=== PATIENT | female | born 1980 | race Caucasian/White ===

== ENCOUNTER 2021-01-01 18:49 | Emergency (ER) | payer OTHER ==
--- OUTSIDE RECORDS SUMMARY | 2021-01-01 18:54 | XMS REPORT | Continuity of Care Document ---
:1980 Author Organization [facility] t Address [address] [place] [address] Care Team Providers Name Role Phone Lab, Fam Pob I Attending Clinician Unavailable Doctor Unassigned, Name Attending Clinician Unavailable Problems Condition Condition Condition Status Onset Resolution Last Treating Co mments Source Name Details Category Date Date Treatment Clinician Date Morbid Problem Active 2019-11-13 Memor ia obesity 04:10:56 l Morbid [place] obesity Active Problem 11/13/2019 eCW: Karis Garcia MD, PA Essential Problem Active 2019-11-13 Me moria hypertensi 04:10:56 l on [place] Essential hypertensi on Active Problem 0 eCW: Karis Garcia MD, PA Hyperglyce Problem Active 2019-11-13 M emoria sonal 04:10:56 l [place] Hyperglyce sonal Active Problem 11/13/2019 eCW: Karis Garcia MD, PA Acquired Problem Active 2019-11-13 Mem oria hypothyroi 04:10:56 l dism Acquired Maximus n hypothyroi dism Active Problem 11/13/2019 eCW: Karis Garcia MD, PA BMI Problem Active 2018-06-26 Memor ia 50.0-59.9, 05:30:17 l adult BMI [place] 50.0-59.9, adult Active Problem 06/26/2018 eCW: Karis Garcia MD, PA Exacerbati Problem Active 2018-06-26 M emoria on of RAD 05:30:17 l (reactive [place] airway Exacerbati disease), on of RAD mild (reactive persistent airway disease), mild persistent Active Problem 06/26/2018 eCW: Karis Garcia MD, PA Viral Diagnosis Active 2018-10-06 Mem oria gastroente 05:11:11 l ritis Viral [place] gastroente ritis Active Diagnosis 10/06/2018 eCW: Karis Garcia MD, PA Dysuria Diagnosis Active 2018-10-06 Me moria 05:11:11 l Dysuria [place] Active Diagnosis 10/06/2018 eCW: Karis Garcia MD, PA Swelling Problem Active 2019-11-13 Mem oria of both 04:10:56 l lower Swelling Maximus n extremitie of both s lower extremitie s Active Problem 11/13/2019 eCW: Karis Garcia MD, PA Reactive Problem Active 2019-11-13 Mem oria airway 04:10:56 l disease Reactive Alla nn airway disease Active Problem 11/13/2019 eCW: Karis Garcia MD, PA Generalize Diagnosis Active 2018-10-12 Memoria d 04:10:58 l abdominal [place] pain Generalize d abdominal pain Active Diagnosis 10/12/2018 eCW: Karis Garcia MD, PA Open wound Diagnosis Active 2014-02-13 Memoria of foot 04:15:15 l except Open [place] toe(s) wound of alone, foot complicate except d toe(s) alone, complicate d Active Diagnosis 02/13/2014 eCW: Karis Garcia MD PA Acute Diagnosis Active 2018-06-26 Mem oria bacterial 05:14:07 l bronchitis Acute Alla nn bacterial bronchitis Active Diagnosis 06/26/2018 eCW: Karis Garcia MD, PA Blood in Diagnosis Active 2018-09-12 M emoria stool 05:13:09 l Blood in Maximus n stool Active Diagnosis 09/12/2018 eCW: Karis Garcia MD, PA Open wound Diagnosis Active 2014-03-27 Memoria of toe(s), 04:11:12 l complicate Open Maximus n d wound of toe(s), complicate d Active Diagnosis 03/27/2014 eCW: Karis Garcia MD, PA Allergies, Adverse Reactions, Alerts Allergy Allergy Status Severity Reaction(s) Onset Inactive Treating Comm ents Source Name Type Date Date Clinician all fish all fish Active stomach 2018- Memor ia upset 3-07 l 00:00: N.NuriaAGisella Willis Active Info Not 2015-07 Tyler attila Available 0-24 l 00:00: Family History Family Member Diagnosis Comments Start Date Stop Date Source Unknown Family Family History 2014-03-27 2014-03-27 Memori al [place] Member 04:11:12 04:11:12 Social History Social Habit Start Date Stop Date Quantity Comments Source TobaccoUse: 2015-05-08 00:00:00 2015-05-08 Tyler rial [place] 00:00:00 Medications Ordered Filled Start Stop Current Ordering Indication Dosage Frequency Signature Comments Components Source Medication Medication Date Date Medication? Clinician (SIG) Name Name Synthroid 2018- Yes LIZ 1 tablet M emoria 1-14 TUCKER on an l 05:10: empty 56 stomach in the morning Nexplanon 2019-0 Yes TIYASHI not Memor ia 3-09 KELLY defined l 05:11: 11 Loperamide 2019-0 Yes TIYASHI 1 capsule Memoria HCl 3-07 KELLY l 00:00: Dicyclomine 2019-0 Yes TIYASHI 1 tablet Memoria HCl 3-07 KELLY l 00:00: Macrobid 2019-0 Yes TIYASHI 1 capsule M emoria 3-05 KELLY with food l 00:00: Lisinopril- 2019-0 Yes TIYASHI 1 tablet Memoria Hydrochloro 2-13 KELLY l thiazide 05:13: Cytomel 2019-0 Yes TIYASHI 1 tablet Mem oria 2-12 KELLY on an l 00:00: empty 00 stomach Lisinopril- 2019-0 Yes TIYASHI 1 tablet Memoria Hydrochloro 2-11 KELLY l thiazide 00:00: Lisinopril- 2017-1 Yes LIZ 1 tablet Memoria Hydrochloro 1-27 TUCKER l thiazide 05:18: 36 Levothyroxi 2017- Yes LIZ 1 tablet Memoria ne Sodium 1-27 TUCKER l 05:18: [place] 36 Levothyroxi 2017- Yes LIZ take one Memoria ne Sodium 1-15 TUCKER tablet by l 05:54: mouth [place] 41 every day 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 2017-07 Yes NEIDA 1 ml Memor ia a 1-13 CHING l 05:15: [place] 56 Synthroid 2017-0 Yes TIYASHI 1 tablet M emoria 7-25 KELLY on an l 00:00: empty stomach in the morning MethylPREDN 2017-0 Yes TIYASHI as Mem oria ISolone 7-20 KELLY directed l 00:00: Albuterol 2017-0 Yes TIYASHI 2 puffs Me moria Sulfate HFA 7-20 KELLY l 00:00: Albuterol 2018-0 Yes TIYASHI 2 puffs Me moria Sulfate HFA 7-20 KELLY l 00:00: Azithromyci 2017-0 Yes LIZ 2 tablets Memoria n 7-20 TUCKER on the l 00:00: first day, then 1 tablet daily for 4 days Lisinopril- 20180 Yes TIYASHI 1 tablet Memoria Hydrochloro 7-16 KELLY l thiazide 00:00: Levothyroxi 2016-0 Yes LIZ 1 tablet Memoria ne Sodium 2-22 TUCKER l 00:00: Lisinopril 2014-07 No NEIDA 1 tablet Me moria 0-16 CHING l 06:14: [place] Cipro 2014-07 Yes NEIDA 1 tablet Memoria 0-16 CHING l 06:14: [place] Acetaminoph 2014-07 Yes NEIDA 1 tablet M emoria en-Codeine 0-16 CHING as needed l 06:14: [place] 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 2014-07 Yes NEIDA 1 ml Memor ia a 0-16 CHING l 06:14: [place] Levothyroxi 2014-07 Yes NEIDA TAKE ONE M emoria ne Sodium 0-16 CHING TABLET BY l 06:14: MOUTH [place] 17 EVERY DAY Cephalexin 2014-07 Yes NEIDA 1 capsule M emoria 0-16 CHING l 06:14: [place] 17 Lisinopril- 2014- Yes NEIDA 1 tablet M emoria Hydrochloro 0-09 CHING l thiazide 00:00: [place] 00 Lisinopril- 2014- Yes NEIDA 1 tablet M emoria Hydrochloro 0-09 CHING l thiazide 00:00: [place] 00 Levothyroxi 2013- Yes NEIDA 1 tablet M emoria ne Sodium 8-28 CHING on an l 04:11: empty [place] 12 stomach in the morning Acetaminoph 2013- Yes NEIDA 1 tablet M emoria en-Codeine 7-30 CHING as needed l 04:20: [place] 08 Doxycycline 2013- Yes NEIDA 1 capsule Memoria Hyclate 7-14 CHING l 00:00: [place] 00 Cipro Yes NEIDA 1 tablet Memoria 7-09 CHING l 00:00: [place] 00 Vital Signs Vital Name Observation Time Observation Value Comments Source Diastolic (mm Hg) 2018-10-04 15:45:00 Mem orial [place] Systolic (mm Hg) 2018-10-04 15:45:00 Tyler rial [place] Temperature Oral (F) 2018-10-04 15:45:00 98.0 F [facility] [place] Weight 2018-10-04 15:45:00 [facility] [place] Height 2018-10-04 15:45:00 [facility] [place] Diastolic (mm Hg) 2018-09-10 22:00:00 Mem orial [place] Systolic (mm Hg) 2018-09-10 22:00:00 Tyler rial [place] Temperature Oral (F) 2018-09-10 22:00:00 98.2 F [facility] [place] Weight 2018-09-10 22:00:00 [facility] [place] Height 2018-09-10 22:00:00 [facility] [place] Diastolic (mm Hg) 2018-02-16 15:30:00 Mem orial [place] Systolic (mm Hg) 2018-02-16 15:30:00 Tyler rial [place] Temperature Oral (F) 2018-02-16 15:30:00 99.3 F [facility] [place] Weight 2018-02-16 15:30:00 [facility] [place] Height 2018-02-16 15:30:00 [facility] [place] Diastolic (mm Hg) 2016-09-19 16:45:00 Mem orial [place] Systolic (mm Hg) 2016-09-19 16:45:00 Tyler rial [place] Temperature Oral (F) 2016-09-19 16:45:00 98.4 F [facility] [place] Weight 2016-09-19 16:45:00 [facility] [place] Height 2016-09-19 16:45:00 [facility] [place] Diastolic (mm Hg) 2016-05-23 20:00:00 Mem orial [place] Systolic (mm Hg) 2016-05-23 20:00:00 Tyler rial [place] Temperature Oral (F) 2016-05-23 20:00:00 98.4 F [facility] [place] Weight 2016-05-23 20:00:00 [facility] [place] Height 2016-05-23 20:00:00 [facility] [place] Weight 2015-05-08 15:00:00 [facility] [place] Height 2015-05-08 15:00:00 [facility] [place] Temperature Oral (F) 2015-05-08 15:00:00 97.2 F [facility] [place] Weight 2014-02-21 15:45:00 [facility] [place] Height 2014-02-21 15:45:00 [facility] [place] Temperature Oral (F) 2014-02-21 15:45:00 98.7 F [facility] [place] Diastolic (mm Hg) 2014-02-21 15:45:00 Mem orial [place] Systolic (mm Hg) 2014-02-21 15:45:00 Tyler rial [place] Weight 2014-02-17 15:15:00 [facility] [place] Height 2014-02-17 15:15:00 [facility] [place] Temperature Oral (F) 2014-02-17 15:15:00 96.8 F [facility] [place] Diastolic (mm Hg) 2014-02-17 15:15:00 Mem orial [place] Systolic (mm Hg) 2014-02-17 15:15:00 Tyler rial [place] Weight 2014-02-10 19:15:00 [facility] [place] Height 2014-02-10 19:15:00 [facility] [place] Temperature Oral (F) 2014-02-10 19:15:00 96.7 F [facility] [place] Diastolic (mm Hg) 2014-02-10 19:15:00 Mem orial [place] Systolic (mm Hg) 2014-02-10 19:15:00 Tyler rial [place] Weight 2014-02-05 15:30:00 Tanner Almendarez Height 2014-02-05 15:30:00 Tanner Almendarez Temperature Oral (F) 2014-02-05 15:30:00 98.3 F Tanner Almendarez Procedures This patient has no known procedures. Encounters Start End Encounter Admission Attending Care Care Encounter Source Date/Time Date/Time Type Type Clinicians Facility Department ID 2020-08-04 2020-08-04 Laboratory Lab, [facility] [id number] 17:06:16 17:26:16 Only Fam Pob I [facility] [id number] [place] [id number] Professio [id number] nal [id number] One 2019-11-11 2019-11-11 Outpatient [facility] [id number] eClinic 10:03:00 10:03:00 [place] [facility] 2019-06-12 2019-06-12 [facility] [id number] eClinic 10:38:00 10:38:00 [place] [facility] 2019-06-11 2019-06-11 [facility] [place] [id number] eClinic 09:45:00 09:45:00 [place] [facility] 2019-03-20 2019-03-20 Orders Doctor REYNAGA [id number] 00:00:00 00:00:00 Only Unassigned, LEWIS [id number] [place] [facility] [id number] 2019-02-21 2019-02-21 [facility] [place] [id number] eClinic 12:40:00 12:40:00 [place] [facility] 2019-02-01 2019-02-01 [facility] [id number] eClinic 15:39:00 15:39:00 [place] [facility] 2019-02-01 2019-02-01 [facility] [id number] eClinic 11:11:00 11:11:00 [place] [facility] 2018-10-08 2018-10-08 Outpatient Karis Karis [id number] eClinic 10:39:00 10:39:00 Jose Garcia MD a Heide JUAREZ 2018-10-04 2018-10-04 Outpatient Karis Karis [id number] eClinic 09:45:00 09:45:00 Jose Jaeger MD 2018-10-02 2018-10-02 Outpatient Karis Karis [id number] eClinic 16:49:00 16:49:00 Jose Garcia MD a Heide JUAREZ 2018-09-11 2018-09-11 Outpatient Karis Karis [id number] eClinic 08:49:00 08:49:00 Jose Garcia MD a Heide JUAREZ 2018-09-10 2018-09-10 Outpatient Karis Karis [id number] eClinic 16:00:00 16:00:00 Jose Jaeger MD 2018-03-05 2018-03-05 Outpatient Karis Karis [id number] eClinic 08:53:00 08:53:00 Jose Jaeger MD 2018-02-27 2018-02-27 Outpatient Karis Karis [id number] eClinic 16:20:00 16:20:00 Jose Jaeger MD 2018-02-21 2018-02-21 Outpatient Karis Karis [id number] eClinic 10:17:00 10:17:00 Jose Jaeger MD 2018-02-17 2018-02-17 Outpatient Karis Karis [id number] eClinic 09:26:00 09:26:00 Jose Jaeger MD 2018-02-16 2018-02-16 Outpatient Karis Karis [id number] eClinic 09:30:00 09:30:00 Jose Jaeger MD 2018-02-12 2018-02-12 Outpatient Karis Karis [id number] eClinic 16:43:00 16:43:00 Jose Jaeger MD 2018-02-08 2018-02-08 Outpatient Karis Karis [id number] eClinic 18:53:00 18:53:00 Jose Garcia MD a Heide JUAREZ 2016-12-16 2016-12-16 Outpatient Karis Karis [id number] eClinic 12:10:00 12:10:00 Jose Garcia MD a Heide JUAREZ 2016-12-16 2016-12-16 Outpatient Karis Karis [id number] eClinic 12:10:00 12:10:00 Jose Garcia MD a Heide JUAREZ 2016-12-16 2016-12-16 Outpatient Karis Karis [id number] eClinic 09:15:00 09:15:00 Jose Garcia MD a Heide JUAREZ 2016-09-21 2016-09-21 Outpatient Karis Karis [id number] eClinic 14:14:00 14:14:00 Jose Garcia MD a Heide JUAREZ 2016-09-19 2016-09-19 Outpatient Karis Karis [id number] eClinic 10:45:00 10:45:00 Jose Garcia MD a Heide JUAREZ 2016-05-23 2016-05-23 Outpatient Karis Karis [id number] eClinic 14:00:00 14:00:00 Jose Jaeger MD 2015-05-08 2015-05-08 Outpatient Karis Karis [id number] eClinic 10:00:00 10:00:00 Jose Garcia al Works MD, PA MD, PA 2014-06-04 2014-06-04 Outpatient Karis Karis [id number] eClinic 14:27:00 14:27:00 Jose Garcia al Works MD, PAZ JUAREZ, PA 2014-02-21 2014-02-21 Outpatient Karis Karis [id number] eClinic 10:45:00 10:45:00 Jose Garcia al Works MD, PA MD, PA 2014-02-17 2014-02-17 Outpatient Karis Karis [id number] eClinic 11:13:00 11:13:00 Jose Garcia al Works MD, PA , PA 2014-02-17 2014-02-17 Outpatient Karis Karis [id number] eClinic 10:15:00 10:15:00 Jose Garcia al Works MD, PA , PA 2014-02-10 2014-02-10 Outpatient Karis Karis [id number] eClinic 16:33:00 16:33:00 Jose Garcia al Works MD, PA , PA 2014-02-10 2014-02-10 Outpatient Karis Karis [id number] eClinic 14:15:00 14:15:00 Jose Garcia al Works MD, PA , PA 2014-02-05 2014-02-05 Outpatient Karis Karis [id number] eClinic 15:17:00 15:17:00 Jose Garcia al Works MD, PA , PA 2014-02-05 2014-02-05 Outpatient Karis Karis [id number] eClinic 10:30:00 10:30:00 Jose Garcia al Works MD, PA , PA Results This patient has no known results.
[2021-01-01 19:50] LABS: Urine Blood Negative (Negative); Urine Glucose Negative (Negative); Urine Protein Negative (Negative); Urine pH 6.5 (5.0-7.0)
[2021-01-01 20:05] LABS: Absolute Lymphocytes (CBC) 2.5 K/uL (0.7-4.9); Basophils % 0.6 % (0-1.3); MPV 6.4 fL (7.6-11.3); RBC Red Blood Cell Count 4.29 M/uL (3.86-4.86)
[2021-01-01] MEDS ORDERED: ONDANSETRON 4 MG/2 ML VIAL ONE (20:17)
[2021-01-01] MEDS ORDERED: MORPHINE 4 MG/ML SYR ONE (20:17)
[2021-01-01 20:26] LABS: ALT/SGPT 30 U/L (12-78); AST/SGOT 14 U/L (15-37); Albumin 3.5 g/dL (3.4-5.0); Alkaline Phosphatase 72 U/L (45-117); BUN Blood Urea Nitrogen 17 mg/dL (7-18); Bicarbonate 30 mmol/L (21-32); Bilirubin Direct < 0.1 mg/dL (0-0.2); Bilirubin Total 0.2 mg/dL (0.2-1.0); Glucose Level 99 mg/dL (74-106); Lipase 104 U/L (73-393); Potassium 4.1 mmol/L (3.5-5.1); Protein, Total 7.5 g/dL (6.4-8.2); Sodium Level 138 mmol/L (136-145)
[2021-01-01 20:30] LABS: Urine Amorphous Sediment 2+ /HPF (NONE SEEN); Urine Bacteria 20-50 /HPF (<20); Urine Mucus 1+ /HPF (NONE SEEN); Urine RBC <5 /HPF (NONE SEEN); Urine Yeast FEW (NONE SEEN)
--- NOTE | 2021-01-01 20:55 | RAD REPORT ---
EXAM DESCRIPTION: US - Pelvis Complete - 01/01/2021 8:31 pm CLINICAL HISTORY: Pelvic pain COMPARISON: None FINDINGS: Evaluation is limited as the bladder is not well distended. Uterus measures approximately 11 x 4 x 5 centimeters. The endometrial stripe was not well visualized but appears normal thickness. Evaluation for fibroids limited. No gross fibroid seen. Right and left ovaries probably visualized and appear normal in size and echotexture. The right and left adnexa appear unremarkable No significant free fluid IMPRESSION: Grossly normal pelvic ultrasound
--- NOTE | 2021-01-01 21:26 | RAD REPORT ---
EXAM DESCRIPTION: CT - Abdomen Pelvis W Contrast - 01/01/2021 9:10 pm CLINICAL HISTORY: Abdominal pain COMPARISON: Pelvic ultrasound January 01, 2021 TECHNIQUE: Computed axial tomography of the abdomen pelvis was obtained. 100 cc Isovue-300 was admin istered intravenously. Oral contrast was not requested which limits evaluation of bowel. All CT scans are performed using dose optimization technique as appropriate and may include automated exposure control or mA/KV adjustment according to patient size. FINDINGS: Fatty liver The spleen, pancreas, adrenal and kidneys appear unremarkable. There is no evidence of diverticulitis. Normal appendix. Small umbilical hernia contains fat. No adnexal mass. 18 millimeter left ovarian follicle IMPRESSION: No acute abnormality is displayed.
--- NOTE | 2021-01-01 21:50 | ER ---
Nurse's Notes [facility] Name: Gallito Butler Age: 40 yrs Sex: Female : 1980 Arrival Date: 01/01/2021 Time: 18:55 Bed 5 Private MD: Diagnosis: Abdominal and pelvic pain;Urinary tract infection, site not specified Presentation: 01/01 18:58 Chief complaint: Patient states: "I am having lower abdominal pain that is sharp and jd3 stabbing. the pain is in the middle to left side of my stomach.". Coronavirus screen: At this time, the client does not indicate any symptoms associated with coronavirus-19. Ebola Screen: Patient negative for fever greater than or equal to 101.5 degrees Fahrenheit, and additional compatible Ebola Virus Disease symptoms. Initial Sepsis Screen: Does the patient meet any 2 criteria? No. Patient's initial sepsis screen is negative. Does the patient have a suspected source of infection? No. Patient's initial sepsis screen is negative. Risk Assessment: Do you want to hurt yourself or someone else? Patient reports no desire to harm self or others. Onset of symptoms was January 01, 2021. 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 - Social history:: Smoking status: Patient denies any tobacco usage or history of. Screenin:06 Abuse screen: Denies threats or abuse. Denies injuries from another. Nutritional rr5 screening: No deficits noted. Tuberculosis screening: No symptoms or risk factors identified. Fall Risk IV access (20 points). Total [place] Fall Scale indicates No Risk (0-24 pts). Assessment: 19:50 General: Appears in no apparent distress. uncomfortable, Behavior is calm, cooperative, rr5 appropriate for age. 19:50 Pain: Complains of pain in left lower quadrant Pain currently is 8 out of 10 on a pain rr5 scale. Quality of pain is described as aching, sharp, Pain began gradually, Is intermittent. Neuro: Level of Consciousness is awake, alert, obeys commands, Oriented to person, place, time. Cardiovascular: Capillary refill < 3 seconds Patient's skin is warm and dry. Respiratory: Airway is patent Respiratory effort is even, unlabored, Respiratory pattern is regular, symmetrical. GI: Abdomen is round obese, Abd is soft and non tender Reports lower abdominal pain. : No signs and/or symptoms were reported regarding the genitourinary system. EENT: No signs and/or symptoms were reported regarding the EENT system. Derm: Skin is intact, is healthy with good turgor, Skin temperature is warm. Musculoskeletal: Capillary refill < 3 seconds. 21:15 Reassessment: Patient appears in no apparent distress at this time. Patient is alert, rr5 oriented x 3, equal unlabored respirations, skin warm/dry/pink. awaiting for CT result Patient states feeling better. Patient states symptoms have improved. 21:56 Reassessment: Patient appears in no apparent distress at this time. Patient is alert, rr5 oriented x 3, equal unlabored respirations, skin warm/dry/pink. discharge instruction given and explained without complaints made Patient states symptoms have improved. Vital Signs: 19:01 BP 150 / 92; Pulse 89; Resp 18 S; Temp 97.5(TE); Pulse Ox 97% on R/A; Weight 131.54 kg jd3 (R); Height 5 ft. 3 in. (160.02 cm) (R); Pain 7/10; 20:30 BP 155 / 95; Pulse 86; Resp 16; Pulse Ox 98% ; rr5 21:30 BP 141 / 75; Pulse 80; Resp 16; Pulse Ox 98% ; Pain 4/10; rr5 21:57 BP 132 / 75; Pulse 75; Resp 19; Pulse Ox 99% ; rr5 19:01 Body Mass Index 51.37 (131.54 kg, 160.02 cm) j ED Course: 18:55 Patient arrived in ED. mr 19:00 Triage completed. jd3 19:02 Arm band placed on. [facility] 19:34 Xander hCo PA is PHCP. [facility] 19:34 Jeovanny Garcia MD is Attending Physician. [facility] 19:45 Dylan Quinn, RN is Primary Nurse. rr5 19:55 Urine collected: clean catch specimen, clear. rr5 20:02 Inserted saline lock: 20 gauge in right forearm, using aseptic technique. Blood rr5 collected. 20:06 Patient has correct armband on for positive identification. Bed in low position. Call rr5 light in reach. 20:31 US Pelvis Complete In Process Unspecified. EDMS 21:11 CT Abd/Pelvis - IV Contrast Only In Process Unspecified. EDMS 21:57 No provider procedures requiring assistance completed. IV discontinued, intact, rr5 bleeding controlled, No redness/swelling at site. Pressure dressing applied. Administered Medications: 20:00 Drug: Zofran (Ondansetron) 4 mg Route: IVP; Site: right forearm; rr5 21:03 Follow up: Response: No adverse reaction rr5 20:02 Drug: morphine 4 mg {Note: rass 0.} Route: IVP; Site: right forearm; rr5 21:00 Follow up: Response: No adverse reaction; RASS: Alert and Calm (0) rr5 Outcome: 21:50 Discharge ordered by . [facility] 21:57 Discharged to home ambulatory, with family. rr5 21:57 Condition: stable 21:57 Discharge instructions given to patient, Instructed on discharge instructions, follow up and referral plans. medication usage, Demonstrated understanding of instructions, follow-up care, medications, Prescriptions given X 2. 21:58 Patient left the ED. rr5 Signatures: Dispatcher [employer] EDMS Xander Cho PA PA [facility] Ruby Chase Moncada RN RN jd3 Roque, Raymond, WILLIAM RN rr5
--- NOTE | 2021-01-01 21:51 | EDPHYS ---
Physician Documentation [facility] Name: Gallito Butler Age: 40 yrs Sex: Female : 1980 Arrival Date: 01/01/2021 Time: 18:55 Bed 5 Private MD: ED Physician Jeovanny Garcia HPI: 01/01 19:48 This 40 yrs old Female presents to ER via Ambulatory with complaints of jmm Abdominal Pain. 19:48 The patient presents with abdominal pain. Onset: The symptoms/episode began/occurred jmm gradually, today. The symptoms do not radiate. Associated signs and symptoms: Pertinent positives: abdominal pain. Associated signs and symptoms: Pertinent negatives: diarrhea, dysuria, fever, vomiting. The symptoms are described as achy. Modifying factors: The symptoms are alleviated by nothing, the symptoms are aggravated by pressure. The patient has experienced similar episodes in the past, ovarian cysts. This is a 40 year old female with a history of hypothyroidism, htn that presents to the ED with complaints of left sided pelvic pain beginning acute onset this morning around 0900. Feels similar previous ovarian cyst. . 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 - Social history:: Smoking status: Patient denies any tobacco usage or history of. ROS: 19:48 Constitutional: Negative for fever, chills, and weight loss, Cardiovascular: Negative jmm for chest pain, palpitations, and edema, Respiratory: Negative for shortness of breath, cough, wheezing, and pleuritic chest pain. 19:48 Abdomen/GI: Positive for abdominal pain. 19:48 All other systems are negative. Exam: 19:48 Constitutional: This is a well developed, well nourished patient who is awake, alert, jmm and in no acute distress. Head/Face: atraumatic. Eyes: EOMI, no conjunctival erythema appreciated ENT: Moist Mucus Membranes Neck: Trachea midline, Supple Chest/axilla: Normal chest wall appearance and motion. Cardiovascular: Regular rate and rhythm. No edema appreciated Respiratory: Normal respirations, no respiratory distress appreciated 19:48 Back: Normal ROM Skin: General appearance color normal MS/ Extremity: Moves all extremities, no obvious deformities appreciated, no edema noted to the lower extremities Neuro: Awake and alert, normal gait Psych: Behavior is normal, Mood is normal, Patient is cooperative and pleasant 19:48 Abdomen/GI: Inspection: abdomen appears normal, Bowel sounds: normal, Palpation: soft, moderate abdominal tenderness, in the suprapubic area. Vital Signs: 19:01 BP 150 / 92; Pulse 89; Resp 18 S; Temp 97.5(TE); Pulse Ox 97% on R/A; Weight 131.54 kg jd3 (R); Height 5 ft. 3 in. (160.02 cm) (R); Pain 7/10; 20:30 BP 155 / 95; Pulse 86; Resp 16; Pulse Ox 98% ; rr5 21:30 BP 141 / 75; Pulse 80; Resp 16; Pulse Ox 98% ; Pain 4/10; rr5 21:57 BP 132 / 75; Pulse 75; Resp 19; Pulse Ox 99% ; rr5 19:01 Body Mass Index 51.37 (131.54 kg, 160.02 cm) jd3 MDM: 19:44 Patient medically screened. [facility] 21:44 Data reviewed: vital signs, nurses notes. Counseling: I had a detailed discussion with mira the patient and/or guardian regarding: the historical points, exam findings, and any diagnostic results supporting the discharge/admit diagnosis, lab results, radiology results, the need for outpatient follow up, to return to the emergency department if symptoms worsen or persist or if there are any questions or concerns that arise at home. ED course: Patient is alert and non toxic in appearance in the ED. CT is negative for an acute process. patient denies discharge. Patient is advised to follow up with pcp and otherwise given strict return precautions. patient understood and agrees with the plan of care. . 01/01 19:46 Order name: Basic Metabolic Panel; Complete Time: 20:[address] [facility] 01/01 19:46 Order name: CBC with Diff; Complete Time: 20:[address] [facility] 01/01 19:46 Order name: Hepatic Function; Complete Time: 20:[address] [facility] 01/01 19:46 Order name: Lipase; Complete Time: 20:[address] [facility] 01/01 19:50 Order name: Urine Dipstick-Ancillary; Complete Time: 20:17 [facility] 01/01 19:50 Order name: Urine Microscopic Only rr5 01/01 19:46 Order name: IV Saline Lock; Complete Time: 20:[address] [facility] 01/01 19:47 Order name: US Pelvis Complete; Complete Time: 20:[address] [facility] 01/01 19:51 Order name: Urine Microscopic Only; Complete Time: 20:31 [facility] 01/01 19:51 Order name: Urine --Ancillary (enter results); Complete Time: 20:29 2 01/01 20:31 Order name: Urine Culture [facility] 01/01 20:59 Order name: CT Abd/Pelvis - IV Contrast Only; Complete Time: 21:[address] [facility] 01/01 19:46 Order name: Labs collected and sent; Complete Time: 20:[address] [facility] 01/01 19:46 Order name: Urine Dipstick-Ancillary (obtain specimen); Complete Time: 19:[address] [facility] 01/01 19:46 Order name: Urine Test (obtain specimen); Complete Time: 19:50 jm Administered Medications: 20:00 Drug: Zofran (Ondansetron) 4 mg Route: IVP; Site: right forearm; rr5 21:03 Follow up: Response: No adverse reaction rr5 20:02 Drug: morphine 4 mg {Note: rass 0.} Route: IVP; Site: right forearm; rr5 21:00 Follow up: Response: No adverse reaction; RASS: Alert and Calm (0) rr5 Disposition: 01/01/21 21:50 Discharged to Home. Impression: Abdominal and pelvic pain, Urinary tract infection, site not specified. - Condition is Stable. - Discharge Instructions: Pelvic Pain, Female, Urinary Tract Infection, Adult. - Prescriptions for Bactrim DS 800- 160 mg Oral Tablet - take 1 tablet by ORAL route every 12 hours for 10 days; 20 tablet. orphenadrine citrate 100 mg Oral Tablet Sustained Release - take 1 tablet by ORAL route 2 times per day As needed; 20 tablet. - Medication Reconciliation Form, Thank You Letter, Antibiotic Education, Prescription Opioid Use form. - Follow up: Private Physician; When: 2 - 3 days; Reason: Recheck today's complaints, Continuance of care, Re-evaluation by your physician. Signatures: Dispatcher [employer] EDXander Reich PA PA jmm Davies, Jonathon RN RN jDylan Viera RN RN rr5 Corrections: (The following items were deleted from the chart) 21:58 21:50 01/01/2021 21:50 Discharged to Home. Impression: Abdominal and pelvic pain; rr5 Urinary tract infection, site not specified. Condition is Stable. Forms are Medication Reconciliation Form, Thank You Letter, Antibiotic Education, Prescription Opioid Use. Follow up: Private Physician; When: 2 - 3 days; Reason: Recheck today's complaints, Continuance of care, Re-evaluation by your physician. mira
[2021-01-01 22:19] VITALS: TEMP 97.5
[2021-01-01 22:23] VITALS: BP 132/75; O2SAT 99
== END 2021-01-01 21:58 | disposition home or self-care (01) ==
LOC: ER 18:49
DX: N39.0 Urinary tract infection, site not specified (principal); E03.9 Hypothyroidism, unspecified; I10 Essential (primary) hypertension
CPT/HCPCS: 87088; 85025; 87086; 80048; 36415; 81025; 80076; 83690; 74177; 76856; 96375; 96374; 99284; Q9967; J2405; 81003; 81015

== ENCOUNTER 2022-01-02 14:36 | Emergency (ER) | payer OTHER, BC ==
--- OUTSIDE RECORDS SUMMARY | 2022-01-02 14:39 | XMS REPORT | Continuity of Care Document ---
:1980 Author Organization [facility] t Address [address] [place] [address] Care Team Providers Name Role Phone Lab, Fam Pob I Attending Clinician Unavailable Nahomi BARROS Attending Clinician NAHOMI Attending Clinician Unavailable Doctor Unassigned, Name Attending Clinician Unavailable Payers Payer Name Policy Type Policy Number Effective Date Expiration Date S ource Problems Condition Condition Condition Status Onset Resolution Last Treating Co mments Source Name Details Category Date Date Treatment Clinician Date Thrombocyt Thrombocyt Disease Active 2015-07 Overview : Univers osis osis 0-19 See CBC ity of 00:00: 04/[address] Well woman Well woman Disease Active 2015-07 U nivers exam exam 0-17 ity of 00:00: [address] Vaginal Vaginal Disease Active 2015-07 Univers irritation irritation 0-17 it y of 00:: [address] Well woman Well woman Disease Active 2015-07 U nivers exam exam 0-17 ity of 00:00: [address] Nexplanon Nexplanon Disease Active 2014-07 Uni vers insertion insertion 1-11 ity of 00:00: [address] Morbid Morbid Disease Active Univers obesity obesity 5-19 ity of 00:00: [address] Essential Essential Disease Active Uni vers hypertensi hypertensi 9-22 [place] y [place] [address] [place] [address] Hypothyroi Hypothyroi Disease Active U nivers d d 6-05 ity of 00:00: [address] Allergies, Adverse Reactions, Alerts Allergy Allergy Status Severity Reaction(s) Onset Inactive Treating Comm ents Source Name Type Date Date Clinician NO KNOWN Drug Active Univers ALLERGIE Class ity of S [facility] Social History Social Habit Start Date Stop Date Quantity Comments Source Sex Assigned At Universit y of [facility] Tobacco use and 2016-05-16 2016-05-16 Never used Universit y of exposure 00:00:00 00:00:00 [facility] Alcohol intake 2016-05-16 2016-05-16 Current drinker Unive rsity of 00:00:00 00:00:00 of alcohol [facility] [place] Alcohol Comment 2015-03-10 2015-03-10 socially only Univer sity of 00:00:00 00:00:00 [facility] Smoking Status Start Date Stop Date Source Never smoker [facility] Medications Ordered Filled Start Stop Current Ordering Indication Dosage Frequency Signature Comments Components Source Medication Medication Date Date Medication? Clinician (SIG) Name Name metroNIDAZO 2015-07 Yes 500mg Take 1 Uni vers LE (FLAGYL) 1-04 tablet by ity of 500 mg 00:00: mouth 2 [place] tablet 00 (two) Medical times Branch daily. metroNIDAZO 2015-07 Yes 500mg Take 1 Uni vers LE (FLAGYL) 1-04 tablet by ity of 500 mg 00:00: mouth 2 [place] tablet 00 (two) Medical times Branch daily. levothyroxi 2015-07 Yes [id number] 137ug Take 1 Univers ne 1-03 tablet by ity of (SYNTHROID) 00:00: mouth [place] 137 mcg 00 every Medical tablet morning. Branch levothyroxi 2015-07 Yes [id number] 137ug Take 1 Univers ne 1-03 tablet by ity of (SYNTHROID) 00:00: mouth [place] 137 mcg 00 every Medical tablet morning. Branch lisinopril- 2015-07 Yes 1{tbl} Take 1 Un violeta hydrochloro 0-17 tablet by ity of thiazide 19:15: mouth [place] (PRINZIDE,Z 34 daily. Medica l ESTORETIC) Branch 20-12.5 mg per tablet lisinopril- 2015-07 Yes 1{tbl} Take 1 Un violeta hydrochloro 0-17 tablet by ity of thiazide 19:15: mouth [place] (PRINZIDE,Z 34 daily. Medica l ESTORETIC) Branch 20-12.5 mg per tablet LISINOPRIL, 2015- Yes [id number] 20mg Take 20 mg Univers BULK, MISC 0-17 by mouth ity o f 19:10: daily. [address] LISINOPRIL, 2015-07 Yes [id number] 20mg Take 20 mg Univers BULK, MISC 0-17 by mouth ity o f 19:10: daily. [address] Immunizations Ordered Filled Immunization Date Status Comments Candy e Immunization Name Name [facility] 2013-01-02 Completed [facility] 00:00:00 [facility] 2013-01-02 Completed University 00:00:00 [facility] Td 2002-07-31 Completed University 00:00:00 [facility] 2002-07-31 Completed [facility] 00:00:00 [facility] Procedures Procedure Date / Time Performed Performing Clinician Candy e ASSIGNMENT OF BENEFITS 2019-03-20 15:57:40 Doctor Unassigned, No [facility] Encounters Start End Encounter Admission Attending Care Care Encounter Source Date/Time Date/Time Type Type Clinicians Facility Department ID 2020-08-04 2020-08-04 Laboratory Lab, [facility] Fam Pob I [facility] [id number]. [id number] Univers 17:06:16 17:26:16 Only Shar Barth [facility] [id number] parth [facility] [id number] James as Professio [phone] Nh dical [address] Office [address] 2020-08-04 2020-08-04 Laboratory Lab, [facility] [id number] 17:06:16 17:26:16 Only [facility] Pob I Health [id number] [place] [id number] Professio [id number] nal [facility] Office Building [address] 2020-08-04 2020-08-04 Outpatient R [facility] [id number] Univers 17:00:00 17:00:00 [id number] [facility] 2020-08-04 2020-08-04 Outpatient R NAHOMI [facility] [id number] Univers 17:00:00 17:00:00 SHAR [facility] 2019-03-20 2019-03-20 Orders Doctor REYNAGA [id number] Univers 00:00:00 00:00:00 Only Unassigned, LEWIS [id number] ity of [place] [id number] James as [id number] [facility] 009 Branch 2019-03-20 2019-03-20 Orders Doctor RONNELL [id number] 00:00:00 00:00:00 Only Unassigned, LEWIS [id number] [place] [facility] [id number] Results Test Description Test Time Test Comments Results Result Comments Source TSH, THIRD GENERATION 2021-12-28 02:36:57 Test Item Value Reference Range Interpretation Comme nts TSH, THIRD GENERATION (test 0.813 UIU/ML 0.400-4.100 UNLESS OTHERWISE code = 2821) INDICATED, ALL TESTING PERFORMED [facility], [address] [address] LABORATORY DIRE CTOR: PARI GAVIRIA M.D. CLIA NUMBER [id number] CAP ACCREDITATION N O. [id number]
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
--- NOTE | 2022-01-02 15:26 | RAD REPORT ---
EXAM DESCRIPTION: RAD - Shoulder Left 2 View - 01/02/2022 3:18 pm CLINICAL HISTORY: shoulder pain COMPARISON: No comparisons FINDINGS: No fracture or dislocation.
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
[2022-01-02] MEDS ORDERED: DIAZEPAM 5 MG TABLET ONE (15:46)
[2022-01-02] MEDS ORDERED: HYDROCODONE/APAP 5/325 MG TAB ONE (15:46)
[2022-01-02 16:27] VITALS: TEMP 98.2
[2022-01-02 16:28] VITALS: BP 128/80; O2SAT 100
== END 2022-01-02 16:19 | disposition home or self-care (01) ==
LOC: ER 14:36
DX: S29.012A Strain of muscle and tendon of back wall of thorax, initial encounter (principal); V43.52XA Car driver injured in collision with other type car in traffic accident, initial encounter; W22.11XA Striking against or struck by driver side automobile airbag, initial encounter; Y93.89 Activity, other specified; Y92.9 Unspecified place or not applicable; I10 Essential (primary) hypertension; E03.9 Hypothyroidism, unspecified
CPT/HCPCS: 70450; 71045; 72125; 99284